=== PATIENT | female | born 1940 | race Caucasian/White ===

== ENCOUNTER → 2016-05-21 | Outpatient (CLI) | payer OTHER ==
[~2016-05-21] MED LIST: GADOBUTROL 10 ML VIAL IVP ONE
--- NOTE | 2016-05-21 09:53 | MR ---
MRI of the Abdomen (Without and With Contrast) History: Incidentally detected liver lesion on CT angiogram chest. Comparison: CT angiogram chest dated April 18, 2016. Technique: Precontrast 2D FIESTA axial, FSE T2 breathhold axial and coronal, in and out of phase axi al imaging, and T1 LAVA fat-suppressed imaging. Pre- and multiphase postcontrast axial T1 fat-suppres sed images after the uneventful injection of 5 mL Gadavist. Findings: A 1.7 x 1.1-cm T2 hyperintense nonenhancing structure in the dome of the right lobe of the liver is compatible with the finding on CT, consistent with a cyst. A subcapsular 9-mm cyst is noted in the posterior aspect of the right hepatic lobe (series 1303 image 44, e.g.). Scattered additional tiny cysts are present. The gallbladder, pancreas, adrenals, and kidneys are normal. The spleen is no rmal. Accessory spleen is noted. The visualized bowel is normal caliber. The aorta is normal caliber. The IVC, hepatic, portal, splenic, and superior mesenteric veins are patent. No pathologically enlar ged lymph nodes are identified. Degenerative change is present in the spine with multilevel mild to m oderate spinal canal narrowing in the lumbar spine. Impressions: 1. Benign hepatic cyst corresponding to the finding on CT. 2. Additional findings as above.
== END ==
LOC: FIMAGING 07:56
PROVIDERS: ATTEND Physician Assistant
DX: K76.89 Other specified diseases of liver (principal)
CPT/HCPCS: 74183; A9585

== ENCOUNTER 2017-10-23 20:44 | Inpatient (IN) | payer OTHER ==
--- NOTE | 2017-10-23 20:57 | CPEKG ---
Heart Rate: 74 RR Interval: 811 P-R Interval: 184 QRSD Interval: 92 QT Interval: 436 QTC Interval: 484 P [place]: 80 QRS [place]: 66 T Wave [place]: 41 EKG Severity - ABNORMAL ECG - EKG Impression: SINUS RHYTHM EKG Impression: SUPRAVENTRICULAR BIGEMINY EKG Impression: PROBABLE LEFT ATRIAL ABNORMALITY EKG Impression: LEFT VENTRICULAR HYPERTROPHY Electronically Signed By: Jose Angel Jackson 23-Oct-2017 23:23:05
[2017-10-23 21:04] LABS: PLATELET COUNT 221 10^3/uL (150-400)
[2017-10-23] MEDS ORDERED: ONDANSETRON 4 MG/2 ML VIAL IVP PRN (22:52)
[2017-10-23] MEDS ORDERED: hydrALAZINE 20 MG/ML VIAL IVP PRN (22:55)
--- NOTE | 2017-10-23 22:59 | EDPHY ---
H & P Stated Complaint: syncope Time Seen by Provider: 10/23/17 20:50 HPI/ROS: Chief Complaint: Syncope HPI: 77-year-old woman with a history of hypertension was sitting with her family a on the porch this evening when she had a witnessed syncopal event. Patient slumped over was unconscious for about 30 sec. She did not have any preceding chest pain or palpitations. No recent illness. She does state that she has been having changes to her blood pressure medications as her blood pressures been running high. She also says her heart rate has been in the 40s and 50s for the last several months. No fevers or chills. Cough no cough. No history of coronary artery disease. She is currently taking lisinopril 5 mg daily, amlodipine 5 mg, metoprolol 25 mg, and Lasix. No chest pain. No palpitations. She is currently without complaint. ROS: 10 point Review of Systems is negative except as noted in the HPI. PMH: Hypertension Social History: No smoking, no alcohol, no recreational drug use Family History: non-contributory Physical Exam: Gen: Awake, Alert, No Distress HEENT: Nose: no rhinorrhea Eyes: PERRLA, EOMI Mouth: Moist mucosa Neck: Supple, no JVD Chest: nontender, lungs clear to auscultation Heart: S1, S2 normal, no murmur Abd: Soft, non-tender, no guarding Back: no CVA tenderness, no midline tenderness Ext: no edema, non-tender Skin: no rash Neuro: CN II-XII intact, Sensation grossly intact, Strength 5/5 in bilateral upper and lower extremities - Personal History Current Tetanus Diphtheria and Acellular Pertussis (TDAP): Yes - Medical/Surgical History Hx Asthma: No Hx Chronic Respiratory Disease: No Hx Diabetes: No Hx Cardiac Disease: Yes Hx Renal Disease: No Hx Cirrhosis: No Hx Alcoholism: No Hx HIV/AIDS: No Hx Splenectomy or Spleen Trauma: No Other PMH: PMH- HTN, syncope - Social History Smoking Status: Never smoked Constitutional: Initial Vital Signs Temperature (C) 36.6 C 10/23/17 20:52 Heart Rate 71 10/23/17 20:52 Respiratory Rate 16 10/23/17 20:52 Blood Pressure 191/91 H 10/23/17 20:52 O2 Sat (%) 99 10/23/17 20:52 O2 Delivery Mode Room Air Allergies/Adverse Reactions: No Known Allergies Allergy (Unverified 10/23/17 20:50) Home Medications: Medication Instructions Recorded Amlodipine Besylate 04/18/16 Hydrochlorothiazide 04/18/16 Lasix 10/23/17 Lisinopril 10/23/17 Metoprolol Tartrate 10/23/17 Medical Decision Making - Diagnostics EKG Interpretation: ECG time 8:55 p.m., sinus rhythm with a rate of 74, status complexes appearing couple it is an almost 7 appearance of a first-degree AV block however I cannot distinguish a P-wave. They do March out otherwise appropriately. ED Course/Re-evaluation: 69-year-old woman with syncopal episode. She is bradycardic with a appearance of a likely first-degree AV block. She had a single also while sitting down at rest with. She is moderately hypertensive here. I have discussed with Dr. Gonzales, hospitalist. She will admit the the hospital for further evaluation. - Data Points Laboratory Results: Laboratory Results 10/23/17 20:44 10/23/17 20:44 10/23/17 10/23/17 10/23/17 21:06 20:44 20:44 WBC 5.60 10^3/uL 10^3/uL (3.80-9.50) RBC 4.40 10^6/uL 10^6/uL (4.18-5.33) Hgb 14.7 g/dL g/dL (12.6-16.3) Hct 41.4 % % (38.0-47.0) MCV 94.1 fL fL (81.5-99.8) MCH 33.4 pg pg (27.9-34.1) MCHC 35.5 g/dL g/dL (32.4-36.7) RDW 12.9 % % (11.5-15.2) Plt Count 221 10^3/uL 10^3/uL (150-400) MPV 9.3 fL fL (8.7-11.7) Neut % (Auto) 38.1 % L % (39.3-74.2) Lymph % (Auto) 48.4 % H % (15.0-45.0) [place] % (Auto) 10.5 % % (4.5-13.0) Eos % (Auto) 2.3 % % (0.6-7.6) Baso % (Auto) 0.5 % % (0.3-1.7) Nucleat RBC Rel Count 0.0 % % (0.0-0.2) Absolute Neuts (auto) 2.13 10^3/uL 10^3/uL (1.70-6.50) Absolute Lymphs (auto) 2.71 10^3/uL 10^3/uL (1.00-3.00) Absolute Monos (auto) 0.59 10^3/uL 10^3/uL (0.30-0.80) Absolute Eos (auto) 0.13 10^3/uL 10^3/uL (0.03-0.40) Absolute Basos (auto) 0.03 10^3/uL 10^3/uL (0.02-0.10) Absolute Nucleated RBC 0.00 10^3/uL 10^3/uL (0-0.01) Immature Gran % 0.2 % % (0.0-1.1) Immature Gran # 0.01 10^3/uL 10^3/uL (0.00-0.10) Sodium 136 mEq/L mEq/L (135-145) Potassium 4.2 mEq/L mEq/L (3.3-5.0) Chloride 95 mEq/L L mEq/L (97-110) Carbon Dioxide 23 mEq/l mEq/l (22-31) Anion Gap 18 mEq/L H mEq/L (8-16) BUN 22 mg/dL mg/dL (7-23) Creatinine 0.9 mg/dL mg/dL (0.6-1.0) Estimated GFR > 60 Glucose 94 mg/dL mg/dL (70-100) Calcium 10.2 mg/dL mg/dL (8.5-10.4) POC Troponin I 0.01 ng/mL ng/mL (0.00-0.08) Point of Care Test Results: Chemistry 10/23/17 21:06 POC Troponin I 0.01 ng/mL ng/mL (0.00-0.08) Departure - Departure Disposition: [facility] Inpatient Acute Clinical Impression: Syncope Condition: Fair Referrals: Paola Crawford MD [Primary Care Provider] - As per Instructions
--- NOTE | 2017-10-23 23:38 | PDGENHP ---
History and Physical - Chief Complaint Syncope - History of Present Illness Source-patient provides history and appears reliable. Case discussed with ED provider the EMR reviewed. HPI-this is a very pleasant 77-year-old female with history of HTN, SVT who presents to the emergency department today following a syncopal episode at home. Patient reports she was feeling very well today. She was enjoying after dinner games with her family on the porch. She had just served the ice cream and sat down on on the porch with her family when everything went black. Patient woke up to find her leaning over her and shaking her chest. Episode was witnessed and lasted 20-30 seconds before patient regained consciousness. She denies any preceding chest pain/SOB/palpitations/ lightheadedness. She denies any symptoms after she awoke. Patient denies any numbness/tingling or focal deficits. No blurry vision. Patient does report that she monitors her BP and HR at home regularly. She has noticed that her HR has dropped down as low as 40s-50s in the last 2 months. Patient with excellent follow up with Dr. Sanchez. She had an echo done 2 weeks ago also. Her BPs however had remained elevated and she was started on lisinopril in addition to her amlodipine, lasix, HCTZ, metoprolol. Patient denies any orthopnea, PND, LE edema. No KATZ. History Information - Allergies/Home Medication List Allergies/Adverse Reactions: No Known Allergies Allergy (Unverified 10/23/17 20:50) Home Medications: Amlodipine Besylate 04/18/16 [Last Taken Unknown] Hydrochlorothiazide 04/18/16 [Last Taken Unknown] Lasix 10/23/17 [Last Taken Unknown] Lisinopril 10/23/17 [Last Taken Unknown] Metoprolol Tartrate 10/23/17 [Last Taken Unknown] I have personally reviewed and updated: family history, medical history, social history, surgical history - Past Medical History hypertension, SVT - Surgical History Reports: appendectomy - Family History Additional family history: mother - lived to 107 years old. at 103 years she developed HTN. Father - age 78 2/2 aneurysm and blood clot. - Social History Smoking Status: Never smoked Alcohol Use: Occasionally Drug Use: None Additional social history: Patient is . Lives with . COR - FULL. Review of Systems Review of Systems: ROS: 10pt was reviewed & negative except for what was stated in HPI & below Physical Exam Physical Exam: Selected Entries 10/23/17 20:52 Blood Pressure Automatic Method Heart Rate 71 Respiratory 16 Rate O2 Sat (%) 99 Temperature (C) 36.6 C Blood Pressure 191/91 H Mean Arterial 124 H Pressure (MAP) O2 Delivery Room Air Mode Temperature Oral Source Temp Pulse Resp BP Pulse Ox 36.8 C 56 L 18 145/78 H 95 10/23/17 22:57 10/23/17 22:57 10/23/17 22:57 10/23/17 22:57 10/23/17 22:57 Constitutional: no apparent distress, appears nourished, not in pain, other ( NAD. pleasant adult female resting quietly in bed awake. Patient in good spirits. ) Eyes: PERRL, anicteric sclera, EOMI, scleral injection (mild conjunctival injection. no drainage. ) Ears, Nose, Mouth, Throat: dry mucous membranes (slightly dry mucous membranes. ), other (no nasal discharge. ), No no oral mucosal ulcers Cardiovascular: regular rate and rhythym, no murmur, rub, or gallop, pulses symmetric bilaterally, other (occasional extra beat. ), No carotid bruit Peripheral Pulses: 1+: dorsalis-pedis (R), dorsalis-pedis (L) Respiratory: no respiratory distress, no rales or rhonchi, clear to auscultation Gastrointestinal: normoactive bowel sounds, soft, non-tender abdomen, no palpable masses, No distension Genitourinary: no bladder tenderness, No duvall in urethra Skin: warm, normal color, no rashes or abrasions Musculoskeletal: full muscle strength, other (grossly normal strength. moves all extremities. ), No generalized weakness Neurologic: AAOx3, sensation intact bilaterally, CN II-XII Intact, other ( nonfocal exam. ), No weakness, No facial droop Psychiatric: interacting appropriately, not anxious, not encephalopathic, thought process linear, other (pleasant and cooperative. thought process, content, questions appropriate. ) Lab Data & Imaging Review 10/23/17 20:44 10/23/17 20:44 WBC 5.60 10^3/uL (3.80-9.50) 10/23/17 20:44 RBC 4.40 10^6/uL (4.18-5.33) 10/23/17 20:44 Hgb 14.7 g/dL (12.6-16.3) 10/23/17 20:44 Hct 41.4 % (38.0-47.0) 10/23/17 20:44 MCV 94.1 fL (81.5-99.8) 10/23/17 20:44 MCH 33.4 pg (27.9-34.1) 10/23/17 20:44 MCHC 35.5 g/dL (32.4-36.7) 10/23/17 20:44 RDW 12.9 % (11.5-15.2) 10/23/17 20:44 Plt Count 221 10^3/uL (150-400) 10/23/17 20:44 MPV 9.3 fL (8.7-11.7) 10/23/17 20:44 Neut % (Auto) 38.1 % (39.3-74.2) L 10/23/17 20:44 Lymph % (Auto) 48.4 % (15.0-45.0) H 10/23/17 20:44 [place] % (Auto) 10.5 % (4.5-13.0) 10/23/17 20:44 Eos % (Auto) 2.3 % (0.6-7.6) 10/23/17 20:44 Baso % (Auto) 0.5 % (0.3-1.7) 10/23/17 20:44 Nucleat RBC Rel Count 0.0 % (0.0-0.2) 10/23/17 20:44 Absolute Neuts (auto) 2.13 10^3/uL (1.70-6.50) 10/23/17 20:44 Absolute Lymphs (auto) 2.71 10^3/uL (1.00-3.00) 10/23/17 20:44 Absolute Monos (auto) 0.59 10^3/uL (0.30-0.80) 10/23/17 20:44 Absolute Eos (auto) 0.13 10^3/uL (0.03-0.40) 10/23/17 20:44 Absolute Basos (auto) 0.03 10^3/uL (0.02-0.10) 10/23/17 20:44 Absolute Nucleated RBC 0.00 10^3/uL (0-0.01) 10/23/17 20:44 Immature Gran % 0.2 % (0.0-1.1) 10/23/17 20:44 Immature Gran # 0.01 10^3/uL (0.00-0.10) 10/23/17 20:44 Sodium 136 mEq/L (135-145) 10/23/17 20:44 Potassium 4.2 mEq/L (3.3-5.0) 10/23/17 20:44 Chloride 95 mEq/L (97-110) L 10/23/17 20:44 Carbon Dioxide 23 mEq/l (22-31) 10/23/17 20:44 Anion Gap 18 mEq/L (8-16) H 10/23/17 20:44 BUN 22 mg/dL (7-23) 10/23/17 20:44 Creatinine 0.9 mg/dL (0.6-1.0) 10/23/17 20:44 Estimated GFR > 60 10/23/17 20:44 Glucose 94 mg/dL (70-100) 10/23/17 20:44 Calcium 10.2 mg/dL (8.5-10.4) 10/23/17 20:44 POC Troponin I 0.01 ng/mL (0.00-0.08) 10/23/17 21:06 Visualized and Interpreted Chest x-ray results: Yes Visualized and Interpreted EKG results: Yes EKG additional interpertation: NSR 70s. coupled beats with pwaves. LVH. QTc 484. no acute ST changes. Assessment & Plan Assessment: Pleasant 77-year-old female with past medical history significant for HTN on multiple antihypertensives and SVT who presents to the ED today after a syncopal episode. #Syncope (Acute) - DD X-including bradycardia, orthostatic hypotension, vasovagal synope, hypertensive urgency, SVT or other arrhythmia and less likely neurologic etiology. Patient reports that she had no preceding symptoms before her episode but that she had been having occasional lightheadedness at home and had noted a bradycardia development over the last several months. She has not had any previous presyncopal type episodes. Additionally patient admits that she had been a little dehydrated as she has been traveling the last several days and not taking in a lot of liquids despite continuing on her diuretic therapy. Patient blood pressures by her report max SBP 160s/DBP usually 60s. Today SBP mx noted to be 190s and DBP 100s. Suspect effects of bradycardia but will check orthostatic BPs. Trop negative. Hold patient beta anthony overnight. given she has multiple medications and is followed closely with Dr. Sanchez further discussion with them as per day team. Will not order echo as patient reports this was recently done 2 weeks ago outpatient. Consider IVF, but at this time patient reports that she is able to PO hydrate at this time. #accelerated HTN - continue patient lisinopril, amlodipine, lasix, HCTZ once med rec completed. holding metoprolol at this time for bradycardia. #bradycardia - improved at this time. down to 40s at one point. monitor on tele. #hx SVT per patient - monitor closely holding beta anthony. FEN - PO hydration. electrolytes WNL. cardiac diet ordered. PPX - SCDs. consider lovenox if patient should stay additional day. COR - FULL. Dispo - Admit to observation on PCU floor for close cardiac monitoring overnight pending additional findings/recommendations.
[2017-10-24] MEDS: diphenhydrAMINE 25 MG CAP PO PRN ×2 (01:19→20:37)
[2017-10-24] MEDS: MELATONIN 3 MG TAB PO SCH ×2 (01:19→20:37)
[2017-10-24 04:00] LABS: PLATELET COUNT 188 10^3/uL (150-400)
[2017-10-24] MEDS ORDERED: ENOXAPARIN 40 MG/0.4 ML SYR SC SCH (09:00)
--- NOTE | 2017-10-24 10:22 | HOSPPROG ---
Hospitalist Progress Note Assessment/Plan: # syncope - concerning in the setting of brachycardia - too high risk for dc today # bradycardia - hold metop, cont tele monitoring - may need ppm; cards aware - event monitor ordered by cards # htn - hold metop; continue norvasc and lisino # hx SVT - will follow for recurrence while off metop Subjective: had an episode of bradycardia in the 30's abigail Farrar was in the room; had no associated N/V, but did feel lightheaded during the event Objective: Vital Signs Temp Pulse Resp BP Pulse Ox 36.6 C 53 L 20 149/70 H 95 10/24/17 07:24 10/24/17 07:24 10/24/17 07:24 10/24/17 07:24 10/24/17 07:24 Laboratory Results 10/24/17 03:45 10/24/17 03:45 10/23/17 10/24/17 10/25/17 05:59 05:59 05:59 Intake Total 350 Output Total 1600 Balance -1250 chart reviewed ECG, tele personally reviewed - Physical Exam Constitutional: no apparent distress, appears nourished Cardiovascular: regular rate and rhythym, no murmur, rub, or gallop Respiratory: no respiratory distress, no rales or rhonchi Gastrointestinal: soft, non-tender abdomen, no palpable masses, No guarding, No rebound, No distension ICD10 Worksheet Patient Problems: Problems Problem Status Onset Syncope Acute
[2017-10-24] MEDS: FUROSEMIDE 20 MG TAB PO SCH (10:56)
[2017-10-24] MEDS: amLODIPine BESYLATE 5 MG TAB PO SCH (10:56)
[2017-10-24] MEDS: LISINOPRIL 10 MG TAB PO SCH (10:56)
--- NOTE | 2017-10-24 11:59 | ASMTCASEMG ---
Living Arrangements What is your living Answers: With Spouse arrangement? Who do you live with? Type Of Residence What kind of residence do Answers: House you live in? Discharge Plan Comments Coordination Status Comments Notes: Pts case discussed in morning rounds. Pt is a 77 y/o female admitted for syncope. Pt will most likely not have any d/c needs. No therapies ordered at this time. CM available for changes. Plan: Independent Date Signed: 10/24/2017 11:58 AM Electronically Signed By:REYNA Scherer
--- NOTE | 2017-10-24 12:17 | PDMN ---
Medical Necessity Medical necessity: MCG M-510, Supraventricular Arrhythmias- bradycardia, A-1 day , symptomatic bradycardia w/HR as low as 30's and w/syncopal episodes, requiring cont monitoring and poss need for ppm, cards consult pending, status change 10/24 @ 10:18 for further monitoring, eval and tx
--- NOTE | 2017-10-24 13:01 | CPEKG ---
Heart Rate: 79 RR Interval: 759 QRSD Interval: 80 QT Interval: 404 QTC Interval: 464 QRS [place]: 65 T Wave [place]: 49 EKG Severity - ABNORMAL ECG - EKG Impression: ATRIAL FIBRILLATION EKG Impression: CONSIDER LEFT VENTRICULAR HYPERTROPHY Electronically Signed By: Nick Montano 26-Oct-2017 08:26:30
[2017-10-24] MEDS ORDERED: BACITRACIN IRRIGATION/NS 50,000 UNITS/1,000 ML BTL IRR ONE (13:36)
[2017-10-24] MEDS ORDERED: NS 1,000 ML IV ONE (13:36)
[2017-10-24] MEDS ORDERED: ceFAZolin 2 GM/DEXTROSE 100 ML IV ONE (13:36)
--- NOTE | 2017-10-24 13:50 | GCON ---
[f rep st] CONSULTATION CARDIOLOGY CONSULTATION DATE OF CONSULTATION: 10/24/2017 CONSULTING PHYSICIAN: Dr. Garcia CHIEF COMPLAINT: Syncope. HISTORY OF PRESENT ILLNESS: This is a very pleasant 77-year-old female with history of hypertension, SVT, moderate mitral regurgitation, mild pulmonary hypertension with RSVP of 43 mmHg. We have been asked by Dr. Jatinder Garcia to consult on this patient for her syncope, noted bradycardia and pause. The patient presented to the ER yesterday after having a syncopal episode at home. Patient states that she was enjoying some games with her family on the [employer]. She was serving them some ice cream and sat down for a few minutes. Then she recalls waking up to her family surrounding her. They stated that prior to the syncopal episode the patient was leaning over and fell onto one of her grandchildren while seated. Family states that the episode only lasted a few seconds before the patient regained consciousness. The patient denies any preceding chest pain, shortness of breath, palpitations, dizziness or other symptoms associated with it. No loss of bowel or bladder control. In March of 2016, she presented to ED for complaint of palpitations. She had a Holter monitor placed with 2 episodes of SVT and was later put on metoprolol. She states that since then she has had episodes of not feeling right, described as feeling "off" and having some dizziness, but has never had any syncopal episodes. After evaluating her and talking to her, it is unclear if she did have any preceding symptoms before the episode happened. She states that over the past few months, she has been seeing little flashers with her vision but does not associate these with her other symptoms. The patient states that she has felt her heart rate drop within the past few months down to the 40s/50s. She had a followup appointment with 2 weeks ago and had a stable echo. Her blood pressure continues to remain high throughout her visit. At that office visit, Dr. Gibbs added Amlodipine. EKG in the ED showed sinus rhythm with supraventricular bigeminy and left ventricular hypertrophy, VT interval and QT interval normal. Heart rate 74. The patient was noted to have a 3.4 second pause on telemetry today while walking with a nurse. She states that she did feel really lightheaded when this happened and symptoms resolved when she sat down in bed. Additionally, during her evaluation with Dr. Garcia, her heart rate was down into the low 30s asymptomatically. During her interview, it was noticed possible aflutter/AFib on her telemetry. She states that during this time, she has felt similar palpitations and had some mild diaphoresis in the past. She also states that she has been stressed lately and this could be contributing to her symptoms. REVIEW OF SYSTEMS: 10-point review of systems is negative aside from what is stated in the HPI. PAST MEDICAL HISTORY: Hypertension, SVT, moderate mitral regurgitation, mild pulmonary hypertension. PAST SURGICAL HISTORY: Appendectomy. FAMILY HISTORY: Mother lived to 107 years old and had developed hypertension. Father at age 78 due to aneurysm. SOCIAL HISTORY: Nonsmoker. Occasional alcohol use. Denies illicit drug use. The patient is and lives with her . PHYSICAL EXAM: VITAL SIGNS: Blood pressure 164/83, heart rate 110, respiratory rate 14, O2 saturation 97 on room air. GENERAL: Pleasant, well- nourished, well-groomed female sitting up in the hospital bed. Appears slightly anxious, in no acute distress. HEENT: Normocephalic, atraumatic. No gross hearing deficits. Pupils equal and round. No scleral icterus. Moist mucous membranes. RESPIRATORY: Clear to auscultation bilaterally without wheezes, rhonchi, or rales. CARDIOVASCULAR: Tachycardic, irregular rhythm. No peripheral edema. No carotid bruits. No murmurs. ABDOMEN: Soft, nontender. Bowel sounds present. NEURO: Alert and oriented. Normal gait. PSYCH: Appropriate mood and affect. IMPRESSION AND PLAN: This is a very pleasant, 77-year-old female with past medical history of hypertension, SVT and moderate mitral regurgitation who presents here after syncopal episode. She was noted to have 3.4 second pause on telemetry and has also had asymptomatic bradycardia 1. syncope and bradycardia. We discussed keeping her overnight and monitoring her since her last dose of metoprolol succinate was yesterday morning. We also discussed that she is a class 1C indicator for a pacemaker. She would like to proceed with a pacemaker. Risks, benefits, and alternatives reviewed. 2. Afib. Another EKG during her physical exam found her to be in atrial fibrillation/atrial flutter. Her [id number] is 4, which puts her at moderate stroke risk. We did discuss considering full anticoagulation. This will be deferred in the setting of needing a pacemaker. 3. Hypertension. Her blood pressure remains suboptimally controlled. Will likely need uptitration of medications prior to discharge. Permanent pacing will allow for resumption of her Metoprolol. More recommendations to follow. /[id number]/MODL MTDD
--- NOTE | 2017-10-24 15:25 | PDPROPOC ---
Sedation Plan of Care Sedation Plan of Care: vital signs stable, mental status noted, patient educated of risks, benefits, alternatives, patient can tolerate sedation ASA Classification: ASA 2 Planned drugs: fentanyl, midazolam Mallampati Score: Class 1 Mallampati Reference Image: Patient passed 3-3-2 rule?: Yes
--- NOTE | 2017-10-24 15:32 | PDHPUP ---
History & Physical Update H&P update statement: This history and physical update is based on an assessment of the patient which was completed after admission or registration (within 24 hours), but prior to the surgery/procedure. H&P update: H&P reviewed & patient examined, no change in patient's condition since H&P completed
[2017-10-24] MEDS ORDERED: LIDOCAINE 1% 300 MG/30 ML SDV ONE (15:44)
[2017-10-24] MEDS ORDERED: IOPAMIDOL (ISOVUE-300) 50 ML VIAL ONE (15:44)
[2017-10-24] MEDS ORDERED: MIDAZOLAM 2 MG/2 ML VIAL ONE ×2 (15:45→16:27)
[2017-10-24] MEDS ORDERED: fentaNYL 100 MCG/2 ML INJ ONE (15:45)
[2017-10-24] MEDS ORDERED: IOPAMIDOL (ISOVUE-300) 100 ML BTL ONE (15:46)
[2017-10-24] MEDS ORDERED: BUPIVACAINE 0.5% 30 ML SDV ONE (15:46)
[2017-10-24] MEDS ORDERED: LIDO/EPI 1% **for epidural** 30 ML SDV ONE (16:16)
--- NOTE | 2017-10-24 17:16 | PDCTREPORT ---
Cardiothoracic Procedure Rpt Cardiothoracic Procedure Report: Procedure: Implantation of a dual-chamber pacemaker. Indications: Syncope associated with pauses and bradycardia. After obtaining informed consent patient brought to the cardiac catheterization lab. The left subclavian fossa was sterilely prepped and draped. Subclavian venogram was performed. Using a 10 blade an incision was made in the left jenna pectoral region. Using combination of sharp and blunt dissection a pacemaker pocket was created and a bacitracin soaked sponge was placed in the pocket. Using a micro puncture kit subclavian vein on the left was accessed x2. Guidewires were used placed standard 6 [place] guidewires. Using 6 [place] safety sheaths, leads were advanced into the RV apex right atrial appendage. Appropriate sensing and capture were were confirmed. Sheaths were torn away. The leads were secured to the fascia using 0 Ethibond x2. Bacitracin soaked sponge was removed. The pocket was copiously irrigated. Generator was delivered to the field. Leads were attached to the generator. Set screws were tightened per industry standards. The entire system was coiled in the pocket. Standard three-layer closure was performed. The device is an [employer]urity MRI 2272. Serial 8. 911 TV 9 7. Right atrial lead is a tendril SDS serial number [id number]. Ventricular lead is a tendril SDS serial number [id number]. Right atrial sensing was 1.7 mV. Capture was at 1 volts with a pulse with a 0.5 milliseconds. 426 Ohm impedance. Right ventricular sensing was 8.6 m V. Capture was at 0.4 volts with a pulse with a 0.5 milliseconds impedance was 755 Ohms. Conclusions: Successful implantation of a dual-chamber pacemaker. Patient Problems: Problems Problem Status Onset Syncope Acute
--- NOTE | 2017-10-24 18:03 | CPEKG ---
Heart Rate: 65 RR Interval: 923 P-R Interval: 206 QRSD Interval: 88 QT Interval: 464 QTC Interval: 483 QRS [place]: 45 T Wave [place]: 69 EKG Severity - ABNORMAL ECG - EKG Impression: ATRIAL-PACED RHYTHM EKG Impression: BORDERLINE R WAVE PROGRESSION, ANTERIOR LEADS EKG Impression: NONSPECIFIC T ABNORMALITIES, ANT-LAT LEADS Electronically Signed By: Nick Montano 26-Oct-2017 08:24:39
[2017-10-25 04:08] LABS: PLATELET COUNT 191 10^3/uL (150-400)
[2017-10-25] MEDS ORDERED: NS 1,000 ML IV SCH (05:45)
--- NOTE | 2017-10-25 08:29 | SOAPPROG ---
SOAP Progress Note Assessment/Plan: Assessment: Problem list: 1. Status post insertion of a permanent pacemaker 2. Sick sinus syndrome with syncope 3. Hypertension Procedure: Insertion of a dual-chamber pacemaker, echocardiogram Impression: Successful implantation of dual-chamber pacemaker last evening. Patient has felt markedly improved since insertion without further dizziness syncope or near syncope. She does have a bit of shortness of breath with some tightness in the chest this morning. Examination do suggest decreased breath sounds left greater than right. Concern for pneumothorax. Await chest x-ray this morning. Await device interrogation. 10/25/17 08:26 10/25/17 08:30 Subjective: Feeling significantly better today. No dizziness or syncope. Some episodes of mild shortness of breath associated with some indeterminate tightness in the back. Denies PND orthopnea. He has had no syncope or near syncope., no chest pain. Objective: Chest x-ray from last evening revealed no pneumothorax with permanent pacemaker in good position. Vital Signs Temp Pulse Resp BP Pulse Ox 36.9 C 71 20 155/84 H 90 L 10/25/17 08:00 10/25/17 08:00 10/25/17 08:00 10/25/17 08:00 10/25/17 08:00 Laboratory Results 10/25/17 03:22 10/25/17 03:22 10/24/17 10/25/17 10/26/17 05:59 05:59 05:59 Intake Total 1950 Balance 1950 Medications Generic Name Dose Route Start Last Admin Trade Name Freq PRN Reason Stop Dose Admin Lisinopril 10 mg 10/24/17 09:45 10/24/17 10:56 Zestril PO 04/22/18 09:44 10 mg DAILY [facility] Amlodipine Besylate 5 mg 10/24/17 09:45 10/24/17 10:56 Norvasc PO 04/22/18 09:44 5 mg DAILY CLAU Furosemide 20 mg 10/24/17 09:45 10/24/17 10:56 Lasix PO 04/22/18 09:44 20 mg DAILY CLAU Hydralazine HCl 5 mg 10/23/17 22:55 Apresoline IVP 04/21/18 22:54 Q2HRS PRN SBP Greater Than Physical Exam - Physical Exam General Appearance: alert, no apparent distress EENT: PERRL/EOMI Neck: non-tender, full range of motion Respiratory: other (Decreased breath sounds left greater than right. No rhonchi or rales. No wheezing.) Cardiac/Chest: regular rate, rhythm, other (Pacer free of erythema or edema.) Peripheral Pulses: 1+: carotid (R), carotid (L), femoral (R), femoral (L) Abdomen: normal bowel sounds, non-tender, soft Back: Normal inspection Skin: warm/dry, No rash Extremities: normal range of motion, non-tender Neuro/Psych: no motor/sensory deficits, alert, normal mood/affect, oriented x 3 ICD10 Worksheet Patient Problems: Problems Problem Status Onset Syncope Acute Review of Systems - Review of Systems Constitutional: no symptoms reported EENTM: no symptoms reported Respiratory: shortness of breath. denies: wheezing, hurts to breath Cardiac: no symptoms reported Gastrointestinal/Abdominal: no symptoms reported Genitourinary: no symptoms Musculoskelatal: back pain Skin: no symptoms Neurological: no symptoms Hematologic/Lymphatic: no symptoms reported Immunologic/allergic: no symptoms reported All Other Systems: Reviewed and Negative
[2017-10-25] MEDS: CHOLECALCIFEROL VIT D3 2,000 UNITS TAB/CAP PO SCH (08:47)
[2017-10-25] MEDS: FUROSEMIDE 20 MG TAB PO SCH (08:47)
[2017-10-25] MEDS: amLODIPine BESYLATE 5 MG TAB PO SCH (08:47)
[2017-10-25] MEDS: OMEGA-3 FATTY ACIDS 1,000 MG CAP PO SCH (08:47)
[2017-10-25] MEDS: LISINOPRIL 10 MG TAB PO SCH (08:47)
[2017-10-25] MEDS ORDERED: LIDOCAINE 1% *Not for Epidural 20 ML MDV NB ONE (09:59)
--- NOTE | 2017-10-25 10:08 | HOSPPROG ---
Hospitalist Progress Note Assessment/Plan: # symptomatic bradycardia s/p ppm - feels much better # post-ppm pneumothorax - Dr Pfeiffer placing emergent chest tube # a-fib - seen on tele yesterday - will restart metop - start AC after CT removed # hx SVT - restart metop # htn - hold metop; continue norvasc and lisino Subjective: SOB, slight chest/back pain Objective: Vital Signs Temp Pulse Resp BP Pulse Ox 36.9 C 71 20 155/84 H 90 L 10/25/17 08:00 10/25/17 08:00 10/25/17 08:00 10/25/17 08:00 10/25/17 08:00 Laboratory Results 10/25/17 03:22 10/24/17 10/25/17 10/26/17 05:59 05:59 05:59 Intake Total 1950 Balance 1950 high risk with ptx CXR personally reviewed - Physical Exam Constitutional: no apparent distress, appears nourished Cardiovascular: regular rate and rhythym, no murmur, rub, or gallop Respiratory: respiratory distress (mild), other (diminished L sided BS), No expiratory wheeze, No inspiratory crackles Gastrointestinal: soft, non-tender abdomen, no palpable masses, No guarding, No rebound, No distension ICD10 Worksheet Patient Problems: Problems Problem Status Onset Syncope Acute
--- NOTE | 2017-10-25 10:49 | CPEKG ---
Heart Rate: 69 RR Interval: 870 P-R Interval: 180 QRSD Interval: 86 QT Interval: 412 QTC Interval: 442 P [place]: 72 QRS [place]: 82 T Wave [place]: 60 EKG Severity - ABNORMAL ECG - EKG Impression: SINUS RHYTHM EKG Impression: MULTIPLE ATRIAL PREMATURE COMPLEXES EKG Impression: BORDERLINE T ABNORMALITIES, ANT-LAT LEADS EKG Impression: ATRIAL-PACED RHYTHM Electronically Signed By: Nick Montano 26-Oct-2017 08:24:21
[2017-10-25] MEDS: ACETAMINOPHEN 325 MG TAB PO PRN (13:19)
[2017-10-25] MEDS: diphenhydrAMINE 25 MG CAP PO PRN (20:34)
[2017-10-25] MEDS: MELATONIN 3 MG TAB PO SCH (20:34)
[2017-10-26] MEDS: ACETAMINOPHEN 325 MG TAB PO PRN (03:53)
--- NOTE | 2017-10-26 08:21 | SOAPPROG ---
SOAP Progress Note Assessment/Plan: Assessment: POD#1 left tube thoracostomy Iatrogenic left PTX - Lung re-expanded with chest tube. No active air leak. Clamping trial in progress. Plan: CT clamped. Repeat CXR this afternoon. 10/26/17 08:18 Subjective: Feels much better. No longer working to breathe. No pleuritic pains. Objective: Vital Signs Temp Pulse Resp BP Pulse Ox 36.8 C 80 18 165/87 H 97 10/26/17 07:38 10/26/17 07:38 10/26/17 07:38 10/26/17 07:38 10/26/17 07:38 Laboratory Results 10/25/17 03:22 10/26/17 06:11 10/25/17 10/26/17 10/27/17 05:59 05:59 05:59 Intake Total 1950 5 Output Total 2162 Balance 1949 - CTOP minimal CXR -> Essentially unchanged. Lungs well expanded. Tiny residual left apical PTX. Physical Exam - Physical Exam General Appearance: alert, no apparent distress Respiratory: lungs clear, other (CT to pleurovac, no tidal, no air leak) ICD10 Worksheet Patient Problems: Problems Problem Status Onset Syncope Acute
--- NOTE | 2017-10-26 08:30 | SOAPPROG ---
SOAP Progress Note Assessment/Plan: Assessment: Problem list: 1. Status post insertion of a permanent pacemaker 2. Sick sinus syndrome with syncope 3. Hypertension *4. Iatrogenic pneumothorax 5. Atrial fibrillation Procedure: Insertion of a dual-chamber pacemaker, echocardiogram, insertion of a chest tube 10/25/17 08:30 Impression: Day 2 status post successful implantation of dual-chamber pacemaker. Procedure was complicated by iatrogenic pneumothorax despite use of micropuncture kit. This was a delayed pneumothorax. She is status post evacuation by Dr. Pfeiffer with small chest tube. Chest x-ray this morning shows resolution of the pneumothorax. Examination shows equal breath sounds. The tube is now clamped. Plan: Pneumothorax management per CT surgery. Pacemaker working well continue current medical therapy for intermittent atrial fibrillation. No indications for chronic rate or rhythm control at this point. Anticoagulation to be revisited. Blood pressure well controlled. 10/25/17 08:30 Impression: Successful implantation of dual-chamber pacemaker last evening. Patient has felt markedly improved since insertion without further dizziness syncope or near syncope. She does have a bit of shortness of breath with some tightness in the chest this morning. Examination do suggest decreased breath sounds left greater than right. Concern for pneumothorax. Await chest x-ray this morning. Await device interrogation. X 10/26/17 08:29 10/26/17 08:30 Subjective: Feeling well. Back and pain resolved. Shortness of breath resolved. No further syncope or near syncope. Objective: Vital Signs Temp Pulse Resp BP Pulse Ox 36.8 C 80 18 165/87 H 97 10/26/17 07:38 10/26/17 07:38 10/26/17 07:38 10/26/17 07:38 10/26/17 07:38 Laboratory Results 10/25/17 03:22 10/26/17 06:11 10/25/17 10/26/17 10/27/17 05:59 05:59 05:59 Intake Total 1949 2074 Output Total 2161 Balance 1949 - Medications Generic Name Dose Route Start Last Admin Trade Name Freq PRN Reason Stop Dose Admin Amlodipine Besylate 5 mg 10/24/17 09:45 10/25/17 08:47 Norvasc PO 04/22/18 09:44 5 mg DAILY CLAU Lisinopril 10 mg 10/24/17 09:45 10/25/17 08:47 Zestril PO 04/22/18 09:44 10 mg DAILY CLAU Furosemide 20 mg 10/24/17 09:45 10/25/17 08:47 Lasix PO 04/22/18 09:44 20 mg DAILY CLAU Hydralazine HCl 5 mg 10/23/17 22:55 Apresoline IVP 04/21/18 22:54 Q2HRS PRN SBP Greater Than Physical Exam - Physical Exam General Appearance: alert, no apparent distress EENT: PERRL/EOMI, normal ENT inspection Neck: non-tender, full range of motion, supple Respiratory: chest non-tender, lungs clear, normal breath sounds, other (Chest tube site free of erythema or edema) Cardiac/Chest: normal peripheral pulses, regular rate, rhythm, other (Pocket healing well without erythema or edema), No edema, No gallop, No JVD Abdomen: normal bowel sounds, non-tender, soft Back: Normal inspection Skin: normal color, warm/dry, No rash Lymphatic: no adenopathy Extremities: normal range of motion, non-tender, normal inspection Neuro/Psych: no motor/sensory deficits, alert, No facial droop ICD10 Worksheet Patient Problems: Problems Problem Status Onset Pacemaker Acute Iatrogenic pneumothorax Acute Syncope Acute Review of Systems - Review of Systems Constitutional: no symptoms reported EENTM: no symptoms reported Respiratory: no symptoms reported Cardiac: no symptoms reported Gastrointestinal/Abdominal: no symptoms reported Genitourinary: no symptoms Musculoskelatal: no symptoms Skin: no symptoms Neurological: no symptoms Hematologic/Lymphatic: no symptoms reported Immunologic/allergic: no symptoms reported All Other Systems: Reviewed and Negative
[2017-10-26] MEDS: FUROSEMIDE 20 MG TAB PO SCH (08:44)
[2017-10-26] MEDS: CHOLECALCIFEROL VIT D3 2,000 UNITS TAB/CAP PO SCH (08:44)
[2017-10-26] MEDS: amLODIPine BESYLATE 5 MG TAB PO SCH (08:44)
[2017-10-26] MEDS: OMEGA-3 FATTY ACIDS 1,000 MG CAP PO SCH (08:44)
[2017-10-26] MEDS: LISINOPRIL 10 MG TAB PO SCH (08:44)
[2017-10-26] MEDS ORDERED: DILTIAZEM 60 MG TAB PO ONE (09:30)
--- NOTE | 2017-10-26 09:35 | CPEKG ---
Heart Rate: 131 RR Interval: 458 QRSD Interval: 82 QT Interval: 328 QTC Interval: 485 QRS [place]: 56 T Wave [place]: -12 EKG Severity - ABNORMAL ECG - EKG Impression: ATRIAL FIBRILLATION VS ATRIAL FLUTTER EKG Impression: PAIRED VENTRICULAR PREMATURE COMPLEXES EKG Impression: PACED COMPLEX Electronically Signed By: Nick Montano 27-Oct-2017 08:53:05
--- NOTE | 2017-10-26 13:57 | ASMTCMCOM ---
CM Note CM Note Notes: 10/26/2017 Case Management Note Met pt and Yash [phone] during rounds today. Pt had chest tube placed yesterday that was clamped today. Pt experiencing aflutter/afib this morning. There are no PT or OT evals ordered at this time. There are no case management d/c needs identified. Pt lives independently with her . Case Management d/c poc: independent with follow up as directed. Case Management available if needs change. Date Signed: 10/26/2017 01:57 PM Electronically Signed By:Autumn Desouza RN
[2017-10-26] MEDS: DILTIAZEM 60 MG TAB PO SCH ×2 (14:21→18:45)
--- NOTE | 2017-10-26 17:56 | GDS ---
[f rep st] DISCHARGE SUMMARY ALL PROCEDURES: 1. Pacemaker placement by Dr. Suresh on 10/24/2017. 2. Chest tube placement by Dr. Pfeiffer on 10/25/2017. ALL DIAGNOSES: 1. Tachy-rafael syndrome with associated syncope. 2. Iatrogenic pneumothorax. 3. Atrial fibrillation and flutter, new diagnosis. 4. Hypertension. 5. Hyponatremia. HOSPITAL COURSE: This is a 77-year-old female who presented after an episode of syncope. She had si gnificant bradycardia, as well as tachy arrhythmias on telemetry. Because of this, she had a pacemak er placed. This was complicated by an iatrogenic pneumothorax which required a chest tube. This has been clamped the morning of discharge and removed with followup chest x-ray showing no worsening of very small apical pneumothorax. She is comfortable ambulating. Her heart rate has been in the 70s t o 100 after removing her chest tube. She will be started on long-acting diltiazem 180 mg daily, as well as Eliquis to be started in 2 days . I have given her recently risks and benefits of these medications including bleeding, as well as p reventing stroke. She will stop her other antihypertensives as her blood pressure is no longer eleva nasir. She may need to restart those. DISPOSITION: She is discharged in stable condition. BILLING: I spent more than 30 minutes on the day of discharge coordinating care. Copy requested to: Dr. Suresh /[id number]/MODL
--- NOTE | 2017-10-26 18:10 | CPEKG ---
Heart Rate: 69 RR Interval: 870 QRSD Interval: 84 QT Interval: 424 QTC Interval: 455 QRS [place]: 72 T Wave [place]: 53 EKG Severity - ABNORMAL ECG - EKG Impression: PACED RHYTHM WITH PVCS Electronically Signed By: Nick Montano 27-Oct-2017 08:50:50
--- NOTE | 2017-10-26 18:16 | HOSPPROG ---
Hospitalist Progress Note Assessment/Plan: Patient was ambulating in the [facility] prior to discharge. She took a few steps backwards, then had syncope. No significant injury. She was returned to bed, initial BP 80/60, improved to 110/70. No significant arrhythmias on tele. Discussed with Bhaskar Nichols and Kerwin. Impression: - syncope, likely vaso-vagal but other etiologies possible Plan - stat ECG: AV paced - stat CXR: slightly larger ptx, doubt cause of her syncope; discussed with Kaley; will repeat CXR in am - stat echo to r/o lead perforation - Dr Nichols will read - will cancel discharge tonight - 1L NS bolus I spent an additional 45 minutes of direct face to face patient care time from 5 :45-6:30 Objective: Vital Signs Temp Pulse Resp BP Pulse Ox 36.6 C 83 19 111/61 96 10/26/17 16:00 10/26/17 18:02 10/26/17 18:02 10/26/17 18:02 10/26/17 18:02 Laboratory Results 10/25/17 03:22 10/26/17 06:11 10/25/17 10/26/17 10/27/17 05:59 05:59 05:59 Intake Total 1949 2074 Output Total 2161 Balance 1950 - ICD10 Worksheet Patient Problems: Problems Problem Status Onset Pacemaker Acute Iatrogenic pneumothorax Acute Syncope Acute
[2017-10-26] MEDS ORDERED: NS 1,000 ML IV ONE (18:22)
--- NOTE | 2017-10-26 20:10 | ECHO ---
[email or web address] [address] [address] Main: [phone] Fax: Transthoracic Echocardiogram Name: CARLOS ORLANDO MR#: [id number] Study Date: 10/26/2017 Study Time: 06:34 PM Date of : 1940 Age: 77 year(s) Height: 160 cm (63 in.) Weight: 48.53 kg (107 lb.) BSA: 1.48 m2 Gender: Female Examination: Limited Echo Indication: Eval for pericardial effusion/pacer 1 day ago Image Quality: Contrast: Requested by: Jatinder Garcia BP: 111 mmHg/61 mmHg Heart Rate: Rhythm: Indication: Eval for pericardial effusion/pacer 1 day ago Procedure Staff Director Of Music Therapy: Arline Moore [facility] Reading Physician: Norman Nichols MD Requesting Provider: Jatinder Garcia Conclusions: Normal global systolic LV function. The ejection fraction is estimated to be 55-60% %. Normal RV function. There is a pacemaker lead noted in the right ventricle. Trivial anterior pericardial effusion. No echocardiographic evidence of hemodynamic compromise. Measurements: Chambers Valvular Assessment AV/MV Valvular Assessment TV/PV Normal Normal Normal Name Value Range Name Value Range Name Value Range EF Range: 55-60% % Continued Measurements: Findings: Left Ventricle: Normal global systolic LV function. The ejection fraction is estimated to be 55-60% %. Right Ventricle: Normal RV function. There is a pacemaker lead noted in the right ventricle. Tricuspid Valve: The tricuspid valve appears normal. Mild tricuspid regurgitation is present. Pericardium: Trivial anterior pericardial effusion. No echocardiographic evidence of hemodynamic compromise. (No Signature Object) Patient: CARLOS ORLANDO Study Date: 10/26/2017 Page 1 of 2 06:34 PM Patient: CARLOS ORLANDO Study Date: 10/26/2017 Page 2 of 2 06:34 PM [id number]
[2017-10-26] MEDS: MELATONIN 3 MG TAB PO SCH (21:31)
[2017-10-26] MEDS: diphenhydrAMINE 25 MG CAP PO PRN (21:31)
--- NOTE | 2017-10-27 10:01 | SOAPPROG ---
SOAP Progress Note Assessment/Plan: Assessment: Problem list: 1. Status post insertion of a permanent pacemaker 2. Sick sinus syndrome with syncope 3. Hypertension *4. Iatrogenic pneumothorax 5. Atrial fibrillation Procedure: Insertion of a dual-chamber pacemaker, echocardiogram, insertion of a chest tube, repeat echocardiogram, repeat pacemaker interrogation 10/27/17 09:58 Impression: Recurrent syncope despite dual-chamber permanent pacemaker. Likely orthostatic in nature based on clinical examination at time of event. Device continues to work well. Pneumothorax is resolved except for small apical portion. She remains in atrial flutter with controlled ventricular rate blood pressure is controlled. At this point I am not certain that she will tolerate any vaso active medications in light of recurrent syncope likely orthostatic in nature. She is also going to need clear management of her dysrhythmia. At this point would recommend low-dose diltiazem 90 mg long-acting daily. Anticoagulation with Eliquis 5 mg p.o. Twice daily. Outpatient follow-up. If she does not convert spontaneously would cardiovert her electrically and transition her to oral amiodarone for rate and rhythm control and allow permissive hypertension. This was discussed with her. We will follow her up in a week to 10 days as an outpatient. Her pneumothorax has resolved. 10/25/17 08:30 Impression: Day 2 status post successful implantation of dual-chamber pacemaker. Procedure was complicated by iatrogenic pneumothorax despite use of micropuncture kit. This was a delayed pneumothorax. She is status post evacuation by Dr. Pfeiffer with small chest tube. Chest x-ray this morning shows resolution of the pneumothorax. Examination shows equal breath sounds. The tube is now clamped. Plan: Pneumothorax management per CT surgery. Pacemaker working well continue current medical therapy for intermittent atrial fibrillation. No indications for chronic rate or rhythm control at this point. Anticoagulation to be revisited. Blood pressure well controlled. 10/25/17 08:30 Impression: Successful implantation of dual-chamber pacemaker last evening. Patient has felt markedly improved since insertion without further dizziness syncope or near syncope. She does have a bit of shortness of breath with some tightness in the chest this morning. Examination do suggest decreased breath sounds left greater than right. Concern for pneumothorax. Await chest x-ray this morning. Await device interrogation. X Subjective: Feeling well this morning without palpitations, shortness of breath, PND, orthopnea. Objective: Telemetry shows atrial flutter 2-1. Chest x-ray reveals small apical pneumothorax with resolution of her large pneumothorax. Echocardiogram revealed preserved LV systolic function. Pacemaker interrogation shows continued normal functioning. Vital Signs Temp Pulse Resp BP Pulse Ox 36.8 C 74 18 156/79 H 96 10/27/17 07:30 10/27/17 07:30 10/27/17 07:30 10/27/17 07:30 10/27/17 07:30 Laboratory Results 10/25/17 03:22 10/26/17 06:11 10/26/17 10/27/17 10/28/17 05:59 05:59 05:59 Intake Total 2076 650 Output Total 2162 1302 Balance -87 -652 Physical Exam - Physical Exam General Appearance: alert, no apparent distress EENT: PERRL/EOMI, normal ENT inspection Neck: non-tender, full range of motion Respiratory: chest non-tender, lungs clear Cardiac/Chest: normal peripheral pulses, irregularly irregular, No edema, No gallop, No JVD Abdomen: normal bowel sounds, non-tender, soft Back: Normal inspection Skin: normal color, warm/dry, No cyanosis, No rash Extremities: normal range of motion, No pedal edema, No calf tenderness Neuro/Psych: no motor/sensory deficits, alert, normal mood/affect, oriented x 3 ICD10 Worksheet Patient Problems: Problems Problem Status Onset Pacemaker Acute Iatrogenic pneumothorax Acute Syncope Acute
[2017-10-27] MEDS: CHOLECALCIFEROL VIT D3 2,000 UNITS TAB/CAP PO SCH (10:12)
[2017-10-27] MEDS: OMEGA-3 FATTY ACIDS 1,000 MG CAP PO SCH (10:12)
[2017-10-27] MEDS ORDERED: DILTIAZEM CD 120 MG CAP PO SCH (10:15)
[2017-10-27 12:34] VITALS: BP 136/96
--- NOTE | 2017-10-27 14:04 | PDDCSUM ---
Discharge Summary Discharge Summary: Dates of service 10/23-10/27/17 Please see discharge summary from 10/26/17 for full details--patient kept extra night due to syncopal event day of planned discharge. Overnight patient monitored given syncopal event--cardiology evaluated, syncope suspected to be orthostatic in nature, PPM appears to be working well, patient noted to be in atrial flutter with controlled ventricular rate, started on low dose dilt--cardiology plans to f/u with her after dc and if she does not spontaneously convert likely perform CV and start amio. Echo performed post syncope without significant valvular issues and with normal EF.
--- NOTE | 2017-10-27 15:12 | ASDISCHSUM ---
Discharge Information Plan Status:Home with No Needs Medically Cleared to Leave:10/27/2017 Discharge Date:10/27/2017 CM D/C Disposition:Home, Routine, Self-Care ADT D/C Disposition:Home, Routine, Self-Care Projected Discharge Date:10/27/2017 Transportation at D/C: Discharge Delay Reason: Follow-Up Date:10/27/2017 Discharge Slot: Final Diagnosis: Placement Information Patient Contact Information Contact Name:YEMI Relationship: Address:[address] City:[place] Alternate Phone: [facility]/Zip Code:[place] [address] Email: Financial Information Financial Class:Medicare Advantage Plans Primary Plan Desc:[facility] [email or web address] Primary Plan Number:[id number] Secondary Plan Desc: Secondary Plan Number: Assessment Information LACE LACE Length of stay for Answers: 3 days current admission Acuity / Level of Answers: Yes Care: Did the patient have an inpatient admission? Comorbidities - select Answers: Other Notes: HTN; SVT all that apply # of Emergency department Answers: 1-2 visits in the last 6 months Score: 8 Date Signed: 10/27/2017 03:10 PM Electronically Signed By:Autumn Desouza RN [facility] Initial CM Assessment Living Arrangements What is your living Answers: With Spouse arrangement? Who do you live with? Type Of Residence What kind of residence do Answers: House you live in? Discharge Plan Comments Coordination Status Comments Notes: Pts case discussed in morning rounds. Pt is a 77 y/o female admitted for syncope. Pt will most likely not have any d/c needs. No therapies ordered at this time. CM available for changes. Plan: Independent Date Signed: 10/24/2017 11:58 AM Electronically Signed By:REYNA Scherer [facility] CM Progress Note CM Note CM Note Notes: 10/26/2017 Case Management Note Met pt and Yash [phone] during rounds today. Pt had chest tube placed yesterday that was clamped today. Pt experiencing aflutter/afib this morning. There are no PT or OT evals ordered at this time. There are no case management d/c needs identified. Pt lives independently with her . Case Management d/c poc: independent with follow up as directed. Case Management available if needs change. Date Signed: 10/26/2017 01:57 PM Electronically Signed By:Autumn Desouza RN Case Management Discharge Plan Note Case Management Discharge Discharge Order Complete? Answers: Yes Patient to Obtain Answers: Independently Medications Transportation Arranged Answers: Family/Friends Discharge Comments Notes: 10/27/2017 Case Management Note Pt to d/c independently with follow up as directed. Date Signed: 10/27/2017 03:11 PM Electronically Signed By:Autumn Desouza RN Intervention Information
[2017-10-27] MEDS ORDERED: APIXABAN 5 MG TAB PO SCH (21:00)
== END 2017-10-27 15:40 | disposition home or self-care (01) | DRG 243 ==
LOC: EDUNIT# → F2W 23:31 → OBSVTOIN 10-24 10:18
PROVIDERS: ADMIT Family Medicine; ATTEND Family Medicine
PROC: 02H63JZ Insertion of Pacemaker Lead into Right Atrium, Percutaneous Approach (ICD-10-PCS; principal; 2017-10-24)
PROC: 0JH606Z Insertion of Pacemaker, Dual Chamber into Chest Subcutaneous Tissue and Fascia, Open Approach (ICD-10-PCS; principal; 2017-10-24)
PROC: 02HK3JZ Insertion of Pacemaker Lead into Right Ventricle, Percutaneous Approach (ICD-10-PCS; principal; 2017-10-24)
DX: I49.5 Sick sinus syndrome (principal); J95.811 Postprocedural pneumothorax; I48.92 Unspecified atrial flutter; I10 Essential (primary) hypertension; I48.0 Paroxysmal atrial fibrillation; E78.5 Hyperlipidemia, unspecified; I34.0 Nonrheumatic mitral (valve) insufficiency
CPT/HCPCS: 84484-PO; C1785; C1898; G0378; J0690; J1650; J2250; J2270; J3010; Q9967

== ENCOUNTER → 2018-10-01 | Outpatient (CLI) | payer OTHER, MEDICARE | LOC: FIMAGING 10:48 ==